=== PATIENT | female | born 1940 | race Asian ===

== ENCOUNTER → 2018-08-04 | Outpatient (CLI) | payer OTHER | LOC: M.RAD 12:49 | DX: Z08 Encounter for follow-up examination after completed treatment for malignant neoplasm (principal); N63.32 Unspecified lump in axillary tail of the left breast; Z85.3 Personal history of malignant neoplasm of breast ==

== ENCOUNTER → 2019-10-02 | Outpatient (CLI) | payer OTHER | LOC: M.RAD 09:29 | PROVIDERS: ATTEND Internal Medicine Hematology & Oncology | DX: Z12.31 Encounter for screening mammogram for malignant neoplasm of breast (principal) ==

== ENCOUNTER → 2020-11-24 | Outpatient (CLI) | payer OTHER | LOC: M.RAD 11-20 10:30 → M.ULTRA 09:14 → M.RAD 09:30 | PROVIDERS: ATTEND Nurse Practitioner Family | DX: Z12.31 Encounter for screening mammogram for malignant neoplasm of breast (principal); N60.02 Solitary cyst of left breast; N63.20 Unspecified lump in the left breast, unspecified quadrant; Z85.3 Personal history of malignant neoplasm of breast; R92.8 Other abnormal and inconclusive findings on diagnostic imaging of breast ==